=== PATIENT | female | born 1930 | race Caucasian/White ===

== ENCOUNTER 2020-01-04 17:26 | Emergency (ER) | payer OTHER ==
[~2020-01-04] VITALS: Ht 165.1 cm; Wt 68.0 kg
[2020-01-04 23:01] LABS: Basophils # (auto) 0 10 ^3/uL (0-0.2); Basophils % (auto) 0.7 % (0.0-2.0); Eosinophils # (auto) 0 10 ^3/uL (0-0.8); Eosinophils % (auto) 0.9 % (0.0-7.0); Hematocrit 31.5 % (41.0-53.0); Hemoglobin 9.8 g/dL (13.5-17.5); Lymphocytes # (auto) 0.9 10 ^3/uL (0.4-5.4); Lymphocytes % (auto) 18.7 % (10.0-50.0); Mean Corpuscular Hemoglobin 30.3 pg (28.0-32.0); Mean Corpuscular Hgb Conc. 31.1 g/dL (32.0-36.0); Mean Corpuscular Volume 97.5 fL (80.0-100.0); Monocytes # (auto) 0.4 10 ^3/uL (0-1.3); Monocytes % (auto) 8.6 % (0.0-12.0); Neutrophils # (auto) 3.3 10 ^3/uL (1.6-8.6); Neutrophils % (auto) 71.1 % (37.0-80.0); Nucleated Red Blood Cells % 0.2 %; Platelet Count (auto) 197 10^3/uL (140-450); Red Blood Cells 3.23 10^6/uL (4.5-5.90); White Blood Cell 4.6 10^3/uL (4.4-10.8)
[2020-01-04 23:04] LABS: Red Cell Distribution Width 24.4 % (11.8-14.3)
[2020-01-04 23:17] LABS: INR 1.4 (0.9-1.15); Partial Thromboplastin Time 34.6 sec (23.0-31.2)
[2020-01-04 23:20] LABS: Albumin 1.3 g/dL (3.4-5.0); BUN/Creatinine Ratio 17.5; Calcium 6.6 mg/dL (8.5-10.1); Potassium 4.2 mmol/L (3.5-5.1)
[2020-01-04 23:25] LABS: Bilirubin, Total 0.6 mg/dL (0.2-1.0); Total Protein 4.2 g/dL (6.4-8.2)
[2020-01-05] MEDS ORDERED: DOXYCYCLINE 100MG/250ML 250 ML IV ONE ×2 (03:45→06:30)
[2020-01-05] MEDS ORDERED: DexAMETHasone SOD PHOS 10MG/1ML VIAL INJ IV ONE (03:45)
[2020-01-05 06:19] LABS: INR 1.46 (0.9-1.15); Partial Thromboplastin Time 33.2 sec (23.0-31.2)
[2020-01-05] MEDS ORDERED: FUROSEMIDE 20 MG TAB PO ONE (06:30)
[2020-01-05] MEDS ORDERED: DexAMETHasone 4 MG TAB PO ONE (06:30)
[2020-01-05] MEDS ORDERED: DOXYCYCLINE 100 MG TAB/CAP PO ONE (06:45)
[2020-01-05 14:00] VITALS: BP 135/63
== END 2020-01-05 06:22 | disposition home or self-care (01) ==
LOC: EDSEX 17:26 → ER 17:26 → EDBD 17:26 → ER 01-05 06:22
DX: M25.422 Effusion, left elbow (principal); M25.421 Effusion, right elbow; E03.9 Hypothyroidism, unspecified; I25.10 Atherosclerotic heart disease of native coronary artery without angina pectoris; Z95.5 Presence of coronary angioplasty implant and graft; Z95.0 Presence of cardiac pacemaker; Z20.828 Contact with and (suspected) exposure to other viral communicable diseases
CPT/HCPCS: 36415; 71045; 73200; 80053; 82962; 83880; 84484; 85025; 85610; 85730; 87040; 93005; 99285; C9803; J8540; U0003

== ENCOUNTER 2020-01-12 19:48 | Inpatient (IN) | payer OTHER ==
[~2020-01-12] VITALS: Ht 157.5 cm; Wt 58.0 kg
[2020-01-13 01:25] LABS: Urine Bacteria NONE SEEN /hpf (None Seen); Urine Blood 2+ /uL (Negative); Urine WBC 2715 /hpf (0 - 5); Urine WBC Clumps PRESENT /hpf (None Seen)
[2020-01-13] MEDS ORDERED: ONDANSETRON HCL 4 MG/2 ML VIAL IV ONE (02:00)
[2020-01-13] MEDS ORDERED: MORPHINE SULFATE 4 MG/ML SYR/VIAL IV ONE (02:00)
[2020-01-13 02:23] LABS: Basophils # (auto) 0 10 ^3/uL (0-0.2); Basophils % (auto) 0.4 % (0.0-2.0); Eosinophils # (auto) 0.1 10 ^3/uL (0-0.8); Eosinophils % (auto) 0.8 % (0.0-7.0); Hematocrit 28.3 % (36.0-46.0); Hemoglobin 9.4 g/dL (12.2-16.2); Lymphocytes % (auto) 14.7 % (10.0-50.0); Mean Corpuscular Hemoglobin 32.1 pg (28.0-32.0); Mean Corpuscular Hgb Conc. 33.2 g/dL (32.0-36.0); Mean Corpuscular Volume 96.8 fL (80.0-100.0); Monocytes # (auto) 0.4 10 ^3/uL (0-1.3); Monocytes % (auto) 5.6 % (0.0-12.0); Neutrophils # (auto) 5.3 10 ^3/uL (1.6-8.6); Neutrophils % (auto) 78.5 % (37.0-80.0); Nucleated Red Blood Cells % 0.1 %; Platelet Count (auto) 209 10^3/uL (140-450); Red Blood Cells 2.93 10^6/uL (4.0-5.20); White Blood Cell 6.7 10^3/uL (4.4-10.8)
[2020-01-13 02:26] LABS: Red Cell Distribution Width 24.3 % (11.8-14.3)
[2020-01-13 02:41] LABS: Albumin 1.4 g/dL (3.4-5.0); Calcium 6.9 mg/dL (8.5-10.1); Potassium 4.4 mmol/L (3.5-5.1)
[2020-01-13 02:43] LABS: BUN/Creatinine Ratio 27.3; Bilirubin, Total 0.8 mg/dL (0.2-1.0); Total Protein 4.4 g/dL (6.4-8.2)
[2020-01-13] MEDS ORDERED: metroNIDAZOLE 500 MG TAB PO ONE (09:00)
[2020-01-13] MEDS ORDERED: SOD CHL 0.45% 1,000 ML IV ONE ×2 (09:45→10:15)
[2020-01-13] MEDS ORDERED: levoFLOXacin 500MG 100 ML IV SCH (10:00)
[2020-01-13] MEDS ORDERED: metroNIDAZOLE 500 MG TAB PO SCH (10:00)
[2020-01-13 10:37] LABS: Basophils # (auto) 0 10 ^3/uL (0-0.2); Basophils % (auto) 0.2 % (0.0-2.0); Eosinophils # (auto) 0 10 ^3/uL (0-0.8); Eosinophils % (auto) 0.3 % (0.0-7.0); Hematocrit 30.9 % (36.0-46.0); Hemoglobin 9.9 g/dL (12.2-16.2); Lymphocytes # (auto) 0.8 10 ^3/uL (0.4-5.4); Lymphocytes % (auto) 12.3 % (10.0-50.0); Mean Corpuscular Hemoglobin 32.1 pg (28.0-32.0); Mean Corpuscular Hgb Conc. 32.1 g/dL (32.0-36.0); Mean Corpuscular Volume 100.1 fL (80.0-100.0); Monocytes # (auto) 0.4 10 ^3/uL (0-1.3); Monocytes % (auto) 5.4 % (0.0-12.0); Neutrophils # (auto) 5.5 10 ^3/uL (1.6-8.6); Neutrophils % (auto) 81.8 % (37.0-80.0); Platelet Count (auto) 218 10^3/uL (140-450); Red Blood Cells 3.08 10^6/uL (4.0-5.20); White Blood Cell 6.7 10^3/uL (4.4-10.8)
[2020-01-13 10:39] LABS: Red Cell Distribution Width 24.3 % (11.8-14.3)
[2020-01-13 10:52] LABS: Albumin 1.4 g/dL (3.4-5.0); BUN/Creatinine Ratio 23.1; Calcium 6.9 mg/dL (8.5-10.1); Potassium 4.5 mmol/L (3.5-5.1)
[2020-01-13 10:56] LABS: Bilirubin, Total 0.6 mg/dL (0.2-1.0); Total Protein 4.7 g/dL (6.4-8.2)
[2020-01-13] MEDS ORDERED: SULF400T11 PO (11:42)
[2020-01-13] MEDS ORDERED: LOP2C PO (11:42)
[2020-01-13] MEDS ORDERED: NYS15TP TOP (12:13)
[2020-01-13] MEDS ORDERED: FURO20TA3 PO (12:24)
[2020-01-13] MEDS ORDERED: LEVO112T4 PO (12:24)
[2020-01-13] MEDS ORDERED: SODI650T PO (12:24)
[2020-01-13] MEDS ORDERED: APIX2.5T PO (12:24)
[2020-01-13] MEDS ORDERED: DEXA4TAB PO (12:24)
[2020-01-13] MEDS ORDERED: POTA10TA32 PO (12:24)
[2020-01-13] MEDS ORDERED: SPIR25TA8 PO (12:24)
[2020-01-13] MEDS ORDERED: HYDR50TA15 PO (12:24)
[2020-01-13] MEDS ORDERED: FAMO-12 PO (12:24)
[2020-01-13] MEDS ORDERED: CHL4PW PO (12:24)
[2020-01-13 12:58] VITALS: BP 168/76
[2020-01-13] MEDS: FUROSEMIDE 20 MG/2 ML VIAL IV SCH ×2 (14:00→21:14)
[2020-01-13] MEDS: metroNIDAZOLE 500 MG TAB PO SCH ×2 (14:00→21:15)
[2020-01-13 16:50] VITALS: BP 127/86
[2020-01-13] MEDS ORDERED: FLUC150T38 PO (17:55)
[2020-01-13 18:08] VITALS: BP 127/86
[2020-01-13] MEDS ORDERED: NYSTATIN TOPICAL CREAM 15GM TOP SCH (22:00)
[2020-01-14] MEDS ORDERED: FLUCONAZOLE 100 MG TAB PO SCH (10:00)
== END 2020-01-13 23:25 | disposition hospice, home (50) | DRG 391 ==
LOC: EDBD 19:48 → ER 19:48 → OVERFLOW 19:49 → WEST WING 01-13 11:36
PROVIDERS: ADMIT Internal Medicine; ATTEND Internal Medicine
DX: K52.9 Noninfective gastroenteritis and colitis, unspecified (principal); E43 Unspecified severe protein-calorie malnutrition; N39.0 Urinary tract infection, site not specified; I48.0 Paroxysmal atrial fibrillation; I25.10 Atherosclerotic heart disease of native coronary artery without angina pectoris; I50.9 Heart failure, unspecified; Z95.5 Presence of coronary angioplasty implant and graft; Z74.01 Bed confinement status; Z99.3 Dependence on wheelchair
CPT/HCPCS: 36415; 51702; 71045; 80053; 81001; 82962; 84439; 84443; 85025; 87086; G0378; J1956